=== PATIENT | female | born 1945 | race American Indian/Alaskan Native ===

== ENCOUNTER 2016-12-25 10:12 | Outpatient (CLI) | payer MEDICARE, OTHER ==
--- NOTE | 2016-12-25 14:56 | PET Report ---
PET SB TO MT SUBSEQUENT: HISTORY: Restaging of breast cancer. TECHNIQUE: 12.6 millicuries F-18 FDG was administered intravenously. Noncontrast CT images and PET images were obtained from the skull base to the proximal thighs. Fused images were reviewed on a workstation. The patient's blood glucose level measured 1:15. COMPARISON: 05/29/16. FINDINGS: BRAIN: physiologic FDG uptake in the imaged brain. NECK: physiologic FDG uptake. MEDIASTINUM: There is a new hypermetabolic lymph node in the precarinal chain with Max SUV measuring 6.4. LUNGS: physiologic FDG uptake. PLEURA/PERICARDIUM: physiologic FDG uptake. HEPATOBILIARY: There is a new 2 cm hypodense mass in the anterior left hepatic lobe with Max SUV measuring 6.0. Mean liver SUV measures 4.3. PANCREAS: physiologic FDG uptake. SPLEEN: physiologic FDG uptake. ADRENAL GLANDS: physiologic FDG uptake. KIDNEYS/RENAL COLLECTING SYSTEMS: physiologic FDG uptake. BOWEL/MESENTERY: physiologic FDG uptake. PELVIC VISCERA: physiologic FDG uptake. ABDOMINAL/PELVIC LYMPH NODES: physiologic FDG uptake. MUSCULOSKELETAL: Numerous sclerotic bony lesions throughout the axial and appendicular skeleton appear stable in size and number. Most of these lesions now demonstrate abnormal hypermetabolic activity with Max SUV measuring up to 8.9. IMPRESSION: Progression of disease is demonstrated since 05/29/16. Extensive bony metastases are now hypermetabolic. There is a new hypermetabolic precarinal lymph node. There is also a new 2 cm hypermetabolic liver lesion.
== END 2016-12-25 10:13 | disposition home or self-care (01) ==
LOC: PET 10:12
PROVIDERS: ATTEND Internal Medicine Hematology & Oncology
DX: C50.912 Malignant neoplasm of unspecified site of left female breast (principal); K76.89 Other specified diseases of liver; M89.9 Disorder of bone, unspecified
CPT/HCPCS: 78815; 82962; A9552

== ENCOUNTER 2017-04-30 06:58 | Outpatient (CLI) | payer MEDICARE, OTHER ==
--- NOTE | 2017-05-01 15:12 | PET Report ---
PET/CT:04/30/17 06:58:00 CLINICAL: Breast cancer restaging. RADIOPHARMACEUTICAL: 13.99mCi F18-FDG. COMPARISON: 12/25/16 PET/CT TECHNIQUE- Following intravenous injection of F-18 FDG and an approximately 60 minute uptake period, CT and PET images from the mid skull to the upper thighs were acquired with the patient in the fasted state. No contrast was administered. The CT protocol used for this PET CT study is designed for attenuation correction and anatomic localization of PET abnormalities. This bushel worker CT is not desired to produce and cannot replace, dhaad-ni-amw-art diagnostic CT scans with specific imaging protocols for different body parts and indications. Plasma glucose at the time of this test: 123g/dl. The standardized uptake values (SUV) are normalized to patient body weight and indicate the highest activity concentration (SUV max) in a given disease site. FINDINGS: Brain--Physiologic FDG uptake in the visualized regions of the brain. Neck--Physiologic FDG uptake . Chest--Physiologic FDG uptake in mediastinal blood pool and myocardium. Lungs--No abnormal uptake. No pulmonary nodule or mass. Pleura/pericardium--No abnormal uptake. New small left pleural effusion. Thoracic nodes--A 1.7 x 0.8 cm pretracheal lymph node is slightly larger with an SUV of 6.3 compared to 6.4 on the last exam. Hepatobiliary--The previously described left hepatic mass has increased in size and measures 3.0 x 1.9 cm compared to 2.0 x 1.3 cm with SUV 4.6 compared to 6.0. A new 1 cm FDG avid right hepatic mass with SUV 3.7. Liver background SUV mean, as a reference for comparing FDG studies, is 3.2 compared to 4.1 on the last exam. Spleen--No abnormal uptake. Pancreas--No abnormal uptake. Adrenal Glands--No abnormal uptake. Kidneys/Ureters/Bladder--No abnormal uptake. Abdominopelvic Nodes--No abnormal uptake. Bowel/Peritoneum/Mesentery--No abnormal uptake. Pelvic organs--No abnormal uptake. Bones/Soft Tissues--Stable extensive skeletal metastasis with 2 numerous to count FDG avid blastic lesions throughout the skeleton. No new bone lesions are identified. No fractures. Extensive paraspinal FDG uptake an uptake in brown fat. Other findings: Status post left mastectomy. IMPRESSION- 1. Progression of disease with enlargement of an FDG avid left hepatic metastasis and a new FDG avid right hepatic metastasis. 2. A new small left pleural effusion. However, no pulmonary lesions are identified. 3. Stable mediastinal dipti metastasis. 4. Extensive skeletal metastasis without change.
== END 2017-04-30 06:59 | disposition home or self-care (01) ==
LOC: PET 06:58
PROVIDERS: ATTEND Internal Medicine Hematology & Oncology
DX: C79.51 Secondary malignant neoplasm of bone (principal); C78.7 Secondary malignant neoplasm of liver and intrahepatic bile duct; C78.1 Secondary malignant neoplasm of mediastinum; C50.912 Malignant neoplasm of unspecified site of left female breast; J90 Pleural effusion, not elsewhere classified; K76.89 Other specified diseases of liver
CPT/HCPCS: 78815; 82962; A9552

== ENCOUNTER 2017-05-12 09:40 | Outpatient (CLI) | payer MEDICARE, OTHER ==
[2017-05-12 10:46] LABS: Blood Urea Nitrogen 14 mg/dL (7-17)
[2017-05-12] MEDS ORDERED: NACL ONE (11:05)
--- NOTE | 2017-05-13 07:42 | Cat Scan Report ---
CT of the orbits with and without contrast. History: Breast cancer. Findings: There are multiple small enhancing masses in the right orbit. The 2 largest of these are adjacent to the lateral margin and the medial margin of the orbit measuring 1 cm in diameter laterally and 8 mm in diameter medially. Smaller enhancing lesions are seen adjacent to the optic nerve. There is enhancement of the medial rectus muscle which is suspicious for metastatic disease. There are no abnormal bony findings. There is extensive chronic maxillary sinusitis bilaterally. 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 No bony involvement is seen. 2. Chronic maxillary sinusitis.
== END 2017-05-12 09:41 | disposition home or self-care (01) ==
LOC: CT 09:40
PROVIDERS: ATTEND Internal Medicine Hematology & Oncology
DX: C50.912 Malignant neoplasm of unspecified site of left female breast (principal); H05.89 Other disorders of orbit; J32.0 Chronic maxillary sinusitis
CPT/HCPCS: 36415; 70482; 82565; 84520; Q9967

== ENCOUNTER 2017-06-01 12:39 | Outpatient (CLI) | payer MEDICARE, OTHER ==
--- NOTE | 2017-06-02 10:06 | Magnetic Resonance Report ---
MRI UPPER EXTREMITY JOINT LEFT WITH AND WITHOUT CONTRAST HISTORY: Left shoulder pain. TECHNIQUE: Multisequence, multiplanar MRI through the left shoulder before and after IV gadolinium. COMPARISON: PET CT dated 04/30/17. FINDINGS: There is abnormal bone marrow edema and enhancement throughout the visualized scapula consistent with metastatic disease. There is also a 1.7 cm focus of enhancement in the lateral left humeral head consistent with a bony metastasis. No evidence for fracture, dislocation or ligamentous injury. There are mild osteoarthritic changes at the a.c. joint. A focal full-thickness tear is identified in the distal, anterior supraspinatus tendon measuring up to 1 cm in diameter. The infraspinatus, teres minor and subscapularis tendons are intact and unremarkable. The biceps tendon and its anchor upon the superior labrum are within normal limits. No gross labral defect. Trace joint effusion and fluid in the subacromial bursa are noted. IMPRESSION: Abnormal bone marrow edema and enhancement throughout most of the scapula and a 1.7 cm lesion in the lateral left humeral head consistent with bony metastasis. No evidence for pathologic fracture. Full-thickness tear in the distal, anterior supraspinatus tendon as described. Small joint and bursal fluid.
== END 2017-06-01 12:40 | disposition home or self-care (01) ==
LOC: MRI 12:39 → SPVIMAG 12:39 → MRI 12:40
PROVIDERS: ATTEND Internal Medicine Hematology & Oncology
DX: M75.102 Unspecified rotator cuff tear or rupture of left shoulder, not specified as traumatic (principal); C50.912 Malignant neoplasm of unspecified site of left female breast
CPT/HCPCS: 73223; A9577